=== PATIENT | female | born 2000 | race Caucasian/White ===

== ENCOUNTER → 2018-12-03 | Outpatient (CLI) | payer SELFPAY ==
--- NOTE | 2018-12-03 14:14 | RADIOLOGY REPORT (SQ) ---
EXAM DESCRIPTION: U/S LL4ATMT TRNABD 1GES W/ODOP COMPLETED DATE/TIME: 12/03/2018 1:58 pm REASON FOR STUDY: Z34.01 ENCNTR FOR SUPRVSN OF NORMAL FIRST PREG, FIRST TRIMESTER Z34.01 ENCNTR FOR SUPRVSN OF NORMAL FIRST PREG, FIRST TRIMES COMPARISON: None. TECHNIQUE: Transabdominal static and realtime grayscale images acquired of the pelvis. Additional se lected spectral and color Doppler images recorded. All images stored on PACs. bHCG: None available CLINICAL DATES: Unknown LIMITATIONS: None. FINDINGS: FETUS: Single Living intrauterine . ULTRASOUND EGA: 9 weeks 6 days ULTRASOUND CAESAR: 07/02/2019 EFW: Not applicable less than 20 weeks. CRL: 3 cm FHR: 189 beats per minute. SURVEY: Too early to assess. AMNIOTIC FLUID: Adequate amount. PLACENTA: Not yet developed due to early gestation. SUBCHORIONIC BLEED: No SIZE OF BLEED: Not applicable. UTERUS: No masses. No anomalies. Uterus is 9 x 8 x 6 cm in size CERVICAL LENGTH: 2.1 cm Closed. RIGHT ADNEXA: Normal ovary with normal vascular flow. Right ovary 2.8 x 3 x 1.9 cm with a 1.9 cm cor pus luteal cyst No adnexal free fluid. No adnexal masses. LEFT ADNEXA: Left ovary not well seen due to adnexal bowel gas. No adnexal free fluid. No adnexal masses. FREE FLUID: None. OTHER: No other significant finding. IMPRESSION: LIVING INTRAUTERINE . EGA 9 weeks 6 days Trimester of : First - 0 to 13 weeks. TECHNICAL DOCUMENTATION: JOB ID: [id number] All Rights Reserved Reading location - IP/workstation name: [email or web address]
== END ==
LOC: RAD 13:29
PROVIDERS: ATTEND Midwife
DX: Z34.01 Encounter for supervision of normal first pregnancy, first trimester (principal)
CPT/HCPCS: 76801

== ENCOUNTER 2019-05-28 17:15 | Outpatient (CLI) | payer MEDICAID ==
[2019-05-28 18:06] LABS: APPEARANCE,URINE SLIGHTLY-CLOUDY; BILIRUBIN,URINE NEGATIVE (NEGATIVE); COLOR,URINE YELLOW; GLUCOSE, URINE 50 mg/dL (NEGATIVE); KETONES,URINE TRACE mg/dL (NEGATIVE); LEUKOCYTE ESTERASE,URINE NEGATIVE (NEGATIVE); NITRITE,URINE NEGATIVE (NEGATIVE); PROTEIN,URINE 30 mg/dL (NEGATIVE); URINE SPECIFIC GRAVITY 1.026; UROBILINOGEN,URINE NEGATIVE mg/dL (<2.0)
[2019-05-28 18:20] LABS: URINE AMPHETAMINES SCREEN NEGATIVE; URINE BARBITURATES SCREEN NEGATIVE; URINE BENZODIAZEPINES SCREEN NEGATIVE; URINE COCAINE SCREEN NEGATIVE; URINE MARIJUANA (THC) SCREEN NEGATIVE; URINE METHADONE SCREEN NEGATIVE; URINE PHENCYCLIDINE SCREEN NEGATIVE
--- NOTE | 2019-05-28 19:21 | Non Stress Test Report ---
Non Stress Test Datetime Report Generated by CPN: 05/28/2019 19:21 DEMOGRAPHIC EGA NST: 34.4 INDICATION Indication for Study: Ordered by Provider MONITORING Monitor Explained: Monitor Explained; Test Explained; Patient Verbalized Understanding Time on Monitor: 05/28/2019 17:31 Time off Monitor: 05/28/2019 18:43 NST Duration: 72 NST INTERVENTIONS NST Interventions: PO Hydration Physician Notified NST: Dr Islas BABY A: [id number] BABY A Movement : Present Contraction Frequency : Irregular FHR Baseline : 145 Accelerations : 15X15 Decelerations : None Variability : Moderate 6-25bpm NST Review: Meets Criteria for Reactive NST NST Review and Verified By : SNEHA Aranda Results: Reactive NST COMMENTS NST Comments: Provider reviewed strip NST REPORT Report Trigger: Send Report
== END 2019-05-28 18:50 | disposition home or self-care (01) ==
LOC: LC 17:15
PROVIDERS: ATTEND Student in an Organized Health Care Education/Training Program
PROC: 4A1HXCZ Monitoring of Products of Conception, Cardiac Rate, External Approach (ICD-10-PCS; principal; 2019-05-28)
DX: O47.03 False labor before 37 completed weeks of gestation, third trimester (principal); Z3A.34 34 weeks gestation of pregnancy
CPT/HCPCS: 59025; 80307; 81005

== ENCOUNTER 2019-06-09 21:17 | Outpatient (CLI) | payer MEDICAID ==
[2019-06-09 21:57] LABS: APPEARANCE,URINE CLEAR; BILIRUBIN,URINE NEGATIVE (NEGATIVE); COLOR,URINE YELLOW; GLUCOSE, URINE NEGATIVE (NEGATIVE); KETONES,URINE TRACE mg/dL (NEGATIVE); LEUKOCYTE ESTERASE,URINE NEGATIVE (NEGATIVE); NITRITE,URINE NEGATIVE (NEGATIVE); PROTEIN,URINE NEGATIVE (NEGATIVE); URINE SPECIFIC GRAVITY 1.015; UROBILINOGEN,URINE NEGATIVE mg/dL (<2.0)
[2019-06-09 22:21] LABS: URINE AMPHETAMINES SCREEN NEGATIVE; URINE BARBITURATES SCREEN NEGATIVE; URINE BENZODIAZEPINES SCREEN NEGATIVE; URINE COCAINE SCREEN NEGATIVE; URINE MARIJUANA (THC) SCREEN NEGATIVE; URINE METHADONE SCREEN NEGATIVE; URINE PHENCYCLIDINE SCREEN NEGATIVE
== END 2019-06-09 22:28 | disposition home or self-care (01) ==
LOC: LC 21:17
PROVIDERS: ATTEND Obstetrics & Gynecology
PROC: 4A1HXCZ Monitoring of Products of Conception, Cardiac Rate, External Approach (ICD-10-PCS; principal; 2019-06-09)
DX: O47.03 False labor before 37 completed weeks of gestation, third trimester (principal); Z3A.36 36 weeks gestation of pregnancy
CPT/HCPCS: 59025; 80307; 81005

== ENCOUNTER 2019-06-25 11:50 | Outpatient (CLI) | payer MEDICAID ==
--- NOTE | 2019-06-25 12:01 | Non Stress Test Report ---
Non Stress Test Datetime Report Generated by CPN: 06/25/2019 12:01 DEMOGRAPHIC EGA NST: 36.2 INDICATION Indication for Study: Ordered by Provider MONITORING Monitor Explained: Monitor Explained; Test Explained; Patient Verbalized Understanding Time on Monitor: 06/09/2019 21:30 Time off Monitor: 06/09/2019 22:18 NST Duration: 48 NST INTERVENTIONS NST Interventions: PO Hydration Physician Notified NST: Dr. Naqvi BABY A: [id number] BABY A Movement : Present Contraction Frequency : 2-7 FHR Baseline : 140 Accelerations : 15X15 Decelerations : None Variability : Moderate 6-25bpm NST Review: Meets Criteria for Reactive NST NST Review and Verified By : Marlo Rodriguez RN NST Results: Reactive NST REPORT Report Trigger: Send Report
[2019-06-25 12:37] LABS: APPEARANCE,URINE SLIGHTLY-CLOUDY; BILIRUBIN,URINE NEGATIVE (NEGATIVE); COLOR,URINE YELLOW; GLUCOSE, URINE NEGATIVE (NEGATIVE); KETONES,URINE NEGATIVE (NEGATIVE); LEUKOCYTE ESTERASE,URINE NEGATIVE (NEGATIVE); NITRITE,URINE NEGATIVE (NEGATIVE); PROTEIN,URINE 100 mg/dL (NEGATIVE); URINE SPECIFIC GRAVITY 1.032; UROBILINOGEN,URINE NEGATIVE mg/dL (<2.0)
[2019-06-25 13:06] LABS: URINE AMPHETAMINES SCREEN NEGATIVE; URINE BARBITURATES SCREEN NEGATIVE; URINE BENZODIAZEPINES SCREEN NEGATIVE; URINE COCAINE SCREEN NEGATIVE; URINE MARIJUANA (THC) SCREEN NEGATIVE; URINE METHADONE SCREEN NEGATIVE; URINE PHENCYCLIDINE SCREEN NEGATIVE
== END 2019-06-25 13:30 | disposition home or self-care (01) ==
LOC: LC 11:50
PROVIDERS: ATTEND Obstetrics & Gynecology
DX: O47.1 False labor at or after 37 completed weeks of gestation (principal); Z3A.38 38 weeks gestation of pregnancy
CPT/HCPCS: 59025; 80307; 81001; 84112

== ENCOUNTER 2019-06-26 23:40 | Outpatient (CLI) | payer MEDICAID ==
--- NOTE | 2019-06-26 23:42 | Non Stress Test Report ---
Non Stress Test Datetime Report Generated by CPN: 06/26/2019 23:41 DEMOGRAPHIC EGA NST: 38.4 INDICATION Indication for Study: Other - Please document "Reason for NST Other" in box below. Indication for Study (NST) Other: 38.4 weeks, R/O ROM MONITORING Monitor Explained: Monitor Explained; Test Explained; Patient Verbalized Understanding Time on Monitor: 06/25/2019 12:40 Time off Monitor: 06/25/2019 13:00 NST Duration: 20 NST INTERVENTIONS NST Interventions: PO Hydration Physician Notified NST: Dr Naqvi BABY A: [id number] BABY A Movement : Present Contraction Frequency : none FHR Baseline : 145 Accelerations : 15X15 Decelerations : None Variability : Moderate 6-25bpm NST Review: Meets Criteria for Reactive NST NST Review and Verified By : Ting Camp RNC NST Results: Reactive NST REPORT Report Trigger: Send Report
--- NOTE | 2019-06-27 00:38 | Non Stress Test Report ---
Non Stress Test Datetime Report Generated by CPN: 06/27/2019 00:38 DEMOGRAPHIC EGA NST: 38.6 INDICATION Indication for Study: Ordered by Provider; Other - Please document "Reason for NST Other" in box below. Indication for Study (NST) Other: LC MONITORING Monitor Explained: Monitor Explained; Test Explained; Patient Verbalized Understanding Time on Monitor: 06/27/2019 00:01 Time off Monitor: 06/27/2019 00:30 NST Duration: 29 NST INTERVENTIONS NST Interventions: PO Hydration Physician Notified NST: [place] BABY A Movement : Present Contraction Frequency : 4-11 FHR Baseline : 135 Accelerations : 15X15 Decelerations : None Variability : Moderate 6-25bpm NST Review: Meets Criteria for Reactive NST NST Review and Verified By : B. Ring RN NST Results: Reactive NST REPORT Report Trigger: Send Report
== END 2019-06-27 01:09 | disposition home or self-care (01) ==
LOC: LC 23:40
PROVIDERS: ATTEND Obstetrics & Gynecology
DX: O47.1 False labor at or after 37 completed weeks of gestation (principal); Z3A.38 38 weeks gestation of pregnancy
CPT/HCPCS: 59025; 84112

== ENCOUNTER 2019-07-02 19:33 | Inpatient (IN) | payer MEDICAID ==
[2019-07-02 20:11] LABS: APPEARANCE,URINE SLIGHTLY-CLOUDY; BILIRUBIN,URINE NEGATIVE (NEGATIVE); COLOR,URINE YELLOW; GLUCOSE, URINE NEGATIVE (NEGATIVE); KETONES,URINE NEGATIVE (NEGATIVE); LEUKOCYTE ESTERASE,URINE SMALL (NEGATIVE); NITRITE,URINE NEGATIVE (NEGATIVE); PROTEIN,URINE 100 mg/dL (NEGATIVE); URINE SPECIFIC GRAVITY 1.023; UROBILINOGEN,URINE NEGATIVE mg/dL (<2.0)
[2019-07-02 20:27] LABS: URINE AMPHETAMINES SCREEN NEGATIVE; URINE BARBITURATES SCREEN NEGATIVE; URINE BENZODIAZEPINES SCREEN NEGATIVE; URINE COCAINE SCREEN NEGATIVE; URINE MARIJUANA (THC) SCREEN NEGATIVE; URINE METHADONE SCREEN NEGATIVE; URINE PHENCYCLIDINE SCREEN NEGATIVE
[2019-07-02] MEDS ORDERED: RINGERS SOLUTION,LACTATED 1,000 ML IV PRN (20:35)
--- NOTE | 2019-07-02 20:41 | Admission Physical ---
Datetime Report Generated by CPN: 07/02/2019 20:41 CURRENT ADMISSION Chief Complaint: Suspected Ruptured Membranes Indication for Induction: Not Applicable Admit Impression : Term, Intrauterine Admit Plan: Initiate Labor Protocol ALLERGIES Medication Allergies: No Medication Allergies: No Known Allergies (07/02/2019) Latex: No Latex Allergies Food Allergies: none Environmental Allergies: none OBSTETRICAL HISTORY EDC: 07/05/2019 00:00 : 1 Para: 0 Term: 0 : 0 SAB: 0 IAB: 0 Livin Gestational Diabetes: No Rh Sensitization: No Incompetent Cervix: No BALDEMAR: No Infertility: No ART Treatment: No Uterine Anomaly: No IUGR: No Hx Previous C/S: No Macrosomia: No Hx Loss/Stillborn: No PIH: No Hx : No Placenta Previa/Abruption: No Depression/PP Depression: No PTL/PROM: No Post Hemorrhage: No Current Procedures: Ultrasound; NST Obstetrical History Comments: G1 - current , previously treated for dehydration X2 at 35 and 37 weeks this SEE RECORDS Alcohol: No Marijuana : No Cocaine: No Other Illicit Drugs: No Cigarettes: Never Smoker. 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) INFECTIOUS HISTORY Gonorrhea: No Genital Herpes: No Chlamydia: No Tuberculosis: No Syphilis: No Hepatitis: No HIV/AIDS Exposure: No Rash or Viral Illness: No HPV: No PHYSICAL EXAM General: Normal HEENT: Normal Neurologic: Normal Thyroid: Normal Heart: Normal Lungs: Normal Breast: Deferred Back: Normal Abdomen: Normal Genitourinary Exam: Normal Extremities: Normal DTRs: Normal Pelvic Type: Adequate FETUS A EGA: 39.4 PLANS FOR LABOR AND DELIVERY Labor and Delivery: None Pain Management: Natural Feeding Preference: Breast Benefit of Breast Feed Discussed: Yes Circumcision: Yes INFORMED CONSENT Signature: with User ID: [email or web address]
[2019-07-02 21:15] LABS: ABSOLUTE LYMPHOCYTES (AUTO) 2.8 10^3/uL (0.5-4.7); ABSOLUTE MONOCYTES (AUTO) 0.9 10^3/uL (0.1-1.4); ABSOLUTE NEUT (AUTO) 8.6 10^3/uL (1.7-8.2); BASOPHILS % (AUTO) 0.4 % (0-2); EOSINOPHILS % (AUTO) 0.4 % (0-6); HEMATOCRIT 37.4 % (36.0-47.0); HEMOGLOBIN 12.6 g/dL (12.0-15.5); LYMPHOCYTES % (AUTO) 22.4 % (13-45); MEAN CORPUSCULAR HEMOGLOBIN 29.3 pg (27.0-33.4); MEAN CORPUSCULAR HGB CONC 33.7 g/dL (32.0-36.0); MEAN CORPUSCULAR VOLUME 87 fl (80-97); MONOCYTES % (AUTO) 7.6 % (3-13); PLATELET COUNT 157 10^3/uL (150-450); RED CELL DISTRIBUTION WIDTH 13.7 % (11.5-14.0); SEGMENTED NEUTROPHILS % (AUTO) 69.2 % (42-78); TOTAL CELLS COUNTED % (AUTO) 100 %; WHITE BLOOD COUNT 12.4 10^3/uL (4.0-10.5)
[2019-07-02] MEDS ORDERED: OXYTOCIN 10 UNIT/ML VIAL ONE (22:36)
[2019-07-02] MEDS ORDERED: NALBUPHINE HCL INJ 10 MG/1 ML AMPULE ONE (22:36)
[2019-07-02] MEDS ORDERED: LIDOCAINE 1% INJ-PF (10 MG/ML) 30 ML SDV ONE (22:37)
[2019-07-02] MEDS ORDERED: OXYTOCIN/NORMAL SALINE 20 UNIT/1,000 ML RTUINJ ONE (22:37)
[2019-07-02] MEDS ORDERED: MISOPROSTOL 0.2 MG TABLET ONE (22:37)
[2019-07-02] MEDS ORDERED: NALBUPHINE HCL INJ 10 MG/1 ML AMPULE INJ ONE (23:00)
[2019-07-03] MEDS ORDERED: PHENYLEPHRINE HCL INJ/PF 10 MG/1 ML SDV ONE (01:18)
[2019-07-03] MEDS ORDERED: FENTANYL CITRATE INJ/PF 100 MCG/2 ML AMPUL ONE (01:18)
[2019-07-03] MEDS ORDERED: EPHEDRINE SULFATE INJ 50 MG/1 ML AMPULE ONE (01:19)
[2019-07-03] MEDS ORDERED: FENTANYL/BUPIVACAINE/NS/PF 300 MCG/150 ML RTUINJ EPI ONE (01:19)
[2019-07-03] MEDS ORDERED: BUPIVACAINE HCL 0.25 % INJ/PF (2.5 MG/1 ML) 30 ML VIAL ONE (01:19)
[2019-07-03] MEDS ORDERED: DIPH/PERTUSS(ACELL)/TETANUS VAC/PF 0.5 ML SYR (>=10YO) IM PRN (03:47)
[2019-07-03] MEDS ORDERED: PSEUDOEPHEDRINE HCL 30 MG TABLET PO PRN (03:47)
[2019-07-03] MEDS ORDERED: GLYCERIN/WITCH HAZEL LEAF 1 EACH MED..WIPE TP PRN (03:47)
[2019-07-03] MEDS ORDERED: ACETAMINOPHEN WITH CODEINE #3 TABLET PO PRN (03:47)
[2019-07-03] MEDS ORDERED: PROMETHAZINE HCL INJ 25 MG/1 ML VIAL IV PRN (03:47)
[2019-07-03] MEDS ORDERED: MEASLES,MUMPS&RUBELLA VACC/PF 0.5 ML VIAL SUBCUT PRN (03:47)
[2019-07-03] MEDS ORDERED: ACETAMINOPHEN 650 MG SUPP.RECT PR PRN (03:47)
[2019-07-03] MEDS ORDERED: NA PHOS,M-B/NA PHOS,DI-BA (ADULT) 133 ML ENEMA PR PRN (03:47)
[2019-07-03] MEDS ORDERED: PROMETHAZINE HCL 25 MG SUPP.RECT PR PRN (03:47)
[2019-07-03] MEDS ORDERED: BENZOCAINE/MENTHOL AEROSOL SPRAY 56 ML TOP PRN (03:47)
[2019-07-03] MEDS ORDERED: ZOLPIDEM TARTRATE 5 MG TABLET PO PRN (03:47)
[2019-07-03] MEDS ORDERED: DIPHENHYDRAMINE HCL 25 MG CAPSULE PO PRN (03:47)
[2019-07-03] MEDS ORDERED: OXYTOCIN/NORMAL SALINE 20 UNIT/1,000 ML RTUINJ IV PRN (03:47)
[2019-07-03] MEDS ORDERED: DIBUCAINE 1% OINTMENT 56 GM TP PRN (03:47)
[2019-07-03] MEDS ORDERED: PROMETHAZINE HCL 25 MG TABLET PO PRN (03:47)
[2019-07-03] MEDS ORDERED: MAGNESIUM HYDROXIDE SUSP 30 ML UDCUP PO PRN (03:47)
[2019-07-03] MEDS ORDERED: IBUPROFEN 800 MG TABLET ONE (04:37)
[2019-07-03] MEDS ORDERED: BENZOCAINE/MENTHOL AEROSOL SPRAY 56 ML ONE (04:37)
--- NOTE | 2019-07-03 05:52 | Delivery Summary ---
Del Sum A-C Datetime Report Generated by CPN: 07/03/2019 05:51 DELIVERY PERSONNEL DELIVERY PERSONNEL: [id number] Delivery Doctor:: Walter Dominguez MD Labor and Delivery Nurse:: eDondre Reeves RN Nursery Nurse:: Jaimie Bueno RN Runway Model/STRAIGHT CUTTER MACHINE: tan yari, SURGERY CONSULTANT MATERNAL INFORMATION Delivery Anesthesia: Epidural Medications After Delivery: Pitocin Bolus-Please Comment Meds After Delivery Comment: Pitocin 20 units/1000 ml NS bolus following placenta Delivery QBL: 100 Maternal Complications: None LABOR SUMMARY EDC: 07/05/2019 00:00 No. Babies in Womb: 1 Labor Anesthesia: Epidural LABOR INFORMATION Reason for Induction: Not Applicable Onset of Labor: 07/03/2019 01:18 Complete Dilatation: 07/03/2019 03:01 Oxytocin: N/A Group B Beta Strep: negative Antibiotics # of Doses: 0 Antibiotics Time of Last Dose: n/a Steroids Given: None Reason Steroids Not Administered: Not Applicable Other Reason Not Administered: n/a MEMBRANES Membranes Rupture Method: Spontaneous Rupture of Membranes: 07/02/2019 17:30 Length of Rupture (hr): 10.12 Amniotic Fluid Color: Clear Amniotic Fluid Amount: Small Amniotic Fluid Odor: Normal STAGES OF LABOR Stage 1 hr: 1 Stage 1 min: 43 Stage 2 hr: 0 Stage 2 min: 36 Stage 3 hr: 0 Stage 3 min: 3 Total Time in Labor hr: 2 Total Time in Labor min: 22 VAGINAL DELIVERY Episiotomy: None Laceration #1: Perineal Laceration Extension #1: First Degree Laceration Repair: Yes Laceration Repair Note: repaired with 2-0 vicryl Sponge Count Correct: N/A Sharps Count Correct: N/A CSECTION DELIVERY Primary Indication: N/A Secondary Indication: N/A CSection Incidence: N/A Labor: N/A Elective: N/A BABY A INFORMATION Delivery Date/Time: 07/03/2019 03:37 Method of Delivery: Vaginal Born in Route : No : N/A Forceps: N/A Vacuum Extraction: N/A Shoulder Dystocia : No PRESENTATION/POSITION BABY A Presentation: Cephalic Cephalic Presentation: Vertex Vertex Position: Left Occipital Anterior Breech Presentation: N/A PLACENTA INFORMATION BABY A Placenta Delivery Time : 07/03/2019 03:40 Placenta Method of Delivery: Spontaneous Placenta Status: Delivered SCORES BABY A Heart Rate 1 min: >100 bpm Resp Effort 1 min: Good Cry Reflex Irritability 1 min: Cough or Sneeze or Pulls Away Muscle Tone 1 min: Active Motion Color 1 min: Body [place], Extremities Blue Resuscitation Effort 1 min: Tactile Stimulation SCORE 1 MIN: 9 Heart Rate 5 min: >100 bpm Resp Effort 5 min: Good Cry Reflex Irritability 5 min: Cough or Sneeze or Pulls Away Muscle Tone 5 min: Active Motion Color 5 min: Body [place], Extremities Blue Resuscitation Effort 5 min: Tactile Stimulation SCORE 5 MIN: 9 INFANT INFORMATION BABY A Gestational Age at Delivery: 39.5 Gestational Status: Full Term- 39- 40.6 Weeks Infant Outcome : Liveborn Condition : Stable Sex: Male IDENTIFICATION BABY A Infant Verification Date/Time: 07/03/2019 03:51 ID Band Number: [id number] Mother's Name Verified: Yes RN Verifying Infant: Rody Jacome,RN Additional Verifying Personnel: Harley Quiles RN WEIGHT/LENGTH BABY A Infant Birthweight (gm): 3186 Weight (lb): 7 Weight (oz): 0 Infant Length (in): 19.50 Infant Length (cm): 49.53 CORD INFORMATION BABY A No. Cord Vessels: 3 Nuchal Cord : N/A Cord Blood Taken: Yes-For Storage (Mom's Blood type +) Infant Suction: Mouth ASSESSMENT BABY A Infant Complications: None Physical Findings at Delivery: Within Normal Limits Respirations: Appears Normal Skin to Skin: Yes Skin to Skin Time (min): 60 Transferred To: Remains with Mother SIGNATURES Signature: with User ID: [email or web address]
[2019-07-03] MEDS: SENNOSIDES/DOCUSATE 8.6-50 MG 1 EACH TABLET PO SCH (11:57)
[2019-07-03] MEDS: FAMOTIDINE 20 MG TABLET PO SCH ×2 (11:57→22:16)
[2019-07-03] MEDS: PRENATAL VITAMIN W DHA CAPSULE PO SCH (11:57)
[2019-07-03] MEDS: DOCUSATE SODIUM 100 MG CAPSULE PO SCH ×2 (11:57→18:35)
[2019-07-03] MEDS: FERROUS SULFATE 325 MG TABLET PO SCH ×2 (11:58→18:35)
[2019-07-03] MEDS: IBUPROFEN 800 MG TABLET PO SCH ×3 (12:42→22:00)
[2019-07-04] MEDS: IBUPROFEN 800 MG TABLET PO SCH ×3 (06:25→21:21)
[2019-07-04 07:33] LABS: HEMATOCRIT 33.6 % (36.0-47.0); HEMOGLOBIN 11.1 g/dL (12.0-15.5); MEAN CORPUSCULAR HEMOGLOBIN 29.2 pg (27.0-33.4); MEAN CORPUSCULAR HGB CONC 33.1 g/dL (32.0-36.0); MEAN CORPUSCULAR VOLUME 88 fl (80-97); PLATELET COUNT 128 10^3/uL (150-450); RED BLOOD COUNT 3.81 10^6/uL (3.72-5.28)
[2019-07-04] MEDS: FERROUS SULFATE 325 MG TABLET PO SCH ×2 (09:50→17:19)
[2019-07-04] MEDS: FAMOTIDINE 20 MG TABLET PO SCH (09:50)
[2019-07-04] MEDS: DOCUSATE SODIUM 100 MG CAPSULE PO SCH ×2 (09:50→17:19)
[2019-07-04] MEDS: PRENATAL VITAMIN W DHA CAPSULE PO SCH (09:50)
[2019-07-04] MEDS: SENNOSIDES/DOCUSATE 8.6-50 MG 1 EACH TABLET PO SCH (09:50)
--- NOTE | 2019-07-04 12:29 | PDOC PROGRESS REPORT ---
Subjective-OB Progress Note for:: 07/04/19 Subjective: reports bleeding slowing, pain controlled with current meds, denies needs Physical Exam (OB) Vital Signs: Temp Pulse Resp BP Pulse Ox 98.7 F 92 16 112/75 98 07/04/19 07:39 07/04/19 07:39 07/04/19 07:39 07/04/19 07:39 07/04/19 07:39 Intake & Output 07/03/19 07/04/19 07/05/19 06:59 06:59 06:59 Intake Total 500 Balance 500 Weight 77.8 kg - Abdomen Description: Soft Hernia Present: No Fundal Description: Firm, Midline Fundal Height: u/u - u/2 - Abdominal Distension: No distension Tenderness: Nontender - Extremities Lower extremities: Lisa's sign - neg Calf: Normal, Nontender Objective-Diagnostic Laboratory: 07/04/19 06:57 07/04/19 06:57 WBC 16.0 H RBC 3.81 Hgb 11.1 L Hct 33.6 L MCV 88 MCH 29.2 MCHC 33.1 RDW 14.0 Plt Count 128 L Assessment and Plan(PN) - Time Spent with Patient Time with patient: Less than 15 minutes - Disposition Anticipated Discharge: Home Within: within 24 hours
[2019-07-05] MEDS: FAMOTIDINE 20 MG TABLET PO SCH ×2 (01:56→09:16)
[2019-07-05] MEDS: IBUPROFEN 800 MG TABLET PO SCH (06:06)
[2019-07-05 08:57] VITALS: BP 122/60
[2019-07-05] MEDS: FERROUS SULFATE 325 MG TABLET PO SCH (09:09)
[2019-07-05] MEDS: PRENATAL VITAMIN W DHA CAPSULE PO SCH (09:10)
[2019-07-05] MEDS: DOCUSATE SODIUM 100 MG CAPSULE PO SCH (09:10)
[2019-07-05] MEDS: SENNOSIDES/DOCUSATE 8.6-50 MG 1 EACH TABLET PO SCH (09:11)
--- NOTE | 2019-07-05 10:37 | PDOC DISCHARGE SUMMARY ---
Impression - Admit/DC Date/PCP Admission Date/Primary Care Provider: 07/02/19 20:53 RAMESH HATCH MD Discharge Date: 07/05/19 - Discharge Diagnosis (1) Normal course Is this a current diagnosis for this admission?: Yes (2) Vaginal delivery Is this a current diagnosis for this admission?: Yes - Additional Information Resuscitation Status: Full Code Discharge Diet: Regular Discharge Activity: Balance Activity w/Rest, Pelvic Rest Referrals: RAMESH HATCH MD [Primary Care Provider] - Prescriptions: Ibuprofen [Motrin 800 mg Tablet] 800 mg PO Q8HP PRN #60 tablet PRN Reason: Home Medications: Ibuprofen [Motrin 800 mg Tablet] 800 mg PO Q8HP PRN #60 tablet 07/05/19 Vit/Dha [ Multi + Dha Capsule] 1 cap PO DAILY capsule 07/05/19 Results Laboratory Results: WBC 16.0 10^3/uL (4.0-10.5) H 07/04/19 06:57 RBC 3.81 10^6/uL (3.72-5.28) 07/04/19 06:57 Hgb 11.1 g/dL (12.0-15.5) L 07/04/19 06:57 Hct 33.6 % (36.0-47.0) L 07/04/19 06:57 MCV 88 fl (80-97) 07/04/19 06:57 MCH 29.2 pg (27.0-33.4) 07/04/19 06:57 MCHC 33.1 g/dL (32.0-36.0) 07/04/19 06:57 RDW 14.0 % (11.5-14.0) 07/04/19 06:57 Plt Count 128 10^3/uL (150-450) L 07/04/19 06:57 Lymph % (Auto) 22.4 % (13-45) 07/02/19 20:59 [place] % (Auto) 7.6 % (3-13) 07/02/19 20:59 Eos % (Auto) 0.4 % (0-6) 07/02/19 20:59 Baso % (Auto) 0.4 % (0-2) 07/02/19 20:59 Absolute Neuts (auto) 8.6 10^3/uL (1.7-8.2) H 07/02/19 20:59 Absolute Lymphs (auto) 2.8 10^3/uL (0.5-4.7) 07/02/19 20:59 Absolute Monos (auto) 0.9 10^3/uL (0.1-1.4) 07/02/19 20:59 Absolute Eos (auto) 0.0 10^3/uL (0.0-0.6) 07/02/19 20:59 Absolute Basos (auto) 0.0 10^3/uL (0.0-0.2) 07/02/19 20:59 Seg Neutrophils % 69.2 % (42-78) 07/02/19 20:59 Urine Color YELLOW 07/02/19 19:46 Urine Appearance SLIGHTLY-CLOUDY 07/02/19 19:46 Urine pH 6.0 (5.0-9.0) 07/02/19 19:46 Ur Specific Serena 1.023 07/02/19 19:46 Urine Protein 100 mg/dL (NEGATIVE) H 07/02/19 19:46 Urine Glucose (UA) NEGATIVE mg/dL (NEGATIVE) 07/02/19 19:46 Urine Ketones NEGATIVE mg/dL (NEGATIVE) 07/02/19 19:46 Urine Blood SMALL (NEGATIVE) H 07/02/19 19:46 Urine Nitrite NEGATIVE (NEGATIVE) 07/02/19 19:46 Urine Bilirubin NEGATIVE (NEGATIVE) 07/02/19 19:46 Urine Urobilinogen NEGATIVE mg/dL (<2.0) 07/02/19 19:46 Ur Leukocyte Esterase SMALL (NEGATIVE) H 07/02/19 19:46 Urine Ascorbic Acid NEGATIVE (NEGATIVE) 07/02/19 19:46 Membranes Rupture POSITIVE (NEGATIVE) H 07/02/19 19:57 Urine Opiates Screen NEGATIVE 07/02/19 19:46 Urine Methadone Screen NEGATIVE 07/02/19 19:46 Ur Barbiturates Screen NEGATIVE 07/02/19 19:46 Ur Phencyclidine Scrn NEGATIVE 07/02/19 19:46 Ur Amphetamines Screen NEGATIVE 07/02/19 19:46 U Benzodiazepines Scrn NEGATIVE 07/02/19 19:46 Urine Cocaine Screen NEGATIVE 07/02/19 19:46 U Marijuana (THC) Screen NEGATIVE 07/02/19 19:46 RPR NONREACTIVE (NONREACTIVE) 07/02/19 20:59 Blood Type A POSITIVE 07/02/19 20:59 Antibody Screen NEGATIVE 07/02/19 20:59
== END 2019-07-05 13:55 | disposition home or self-care (01) | DRG 805 ==
LOC: LC 19:33 → LR 20:53 → 2S 07-03 09:30
PROVIDERS: ADMIT Obstetrics & Gynecology Gynecology; ATTEND Obstetrics & Gynecology Gynecology
PROC: 10E0XZZ Delivery of Products of Conception, External Approach (ICD-10-PCS; principal; 2019-07-03)
PROC: 0HQ9XZZ Repair Perineum Skin, External Approach (ICD-10-PCS; 2019-07-03)
DX: O99.12 Other diseases of the blood and blood-forming organs and certain disorders involving the immune mechanism complicating childbirth (principal); D66 Hereditary factor VIII deficiency; O70.0 First degree perineal laceration during delivery; Z37.0 Single live birth; Z3A.39 39 weeks gestation of pregnancy
CPT/HCPCS: 36415; 80307; 81005; 84112; 85025; 85027; 86592; 86850; 86900; 86901; 94760; J2300; J2370; J2590; J3010; J3490